=== PATIENT | female | born 1970 | race Two or more races ===

== ENCOUNTER 2016-11-12 09:35 | Emergency (ER) | payer MEDICAID ==
[~2016-11-12] VITALS: Ht 167.6 cm; Wt 76.0 kg
[2016-11-12] MEDS ORDERED: NAPROXEN 500MG TABLET PO ONE (10:30)
[2016-11-12] MEDS ORDERED: CEFAZOLIN 1000MG PREMIX 50 ML IV ONE (10:45)
[2016-11-12] MEDS ORDERED: MORPHINE SULFATE 4 MG/ML CPJ (NOT FOR IM USE) IV ONE ×2 (10:45→12:30)
[2016-11-12] MEDS ORDERED: VANCOMYCIN 1 G PREMIX 200 ML IV SCH (10:45)
[2016-11-12] MEDS ORDERED: SODIUM CHLORIDE 0.9% 1,000 ML IV ONE (10:45)
[2016-11-12 11:11] LABS: BASOPHILS % 1.1 % (0.0-2.0); EOSINOPHILS % 0.1 % (0.0-5.0); HEMATOCRIT. 36.5 % (36.0-48.0); HEMOGLOBIN. 11.9 g/dL (12.0-16.0); MEAN CORPUSCULAR HEMOGLOBIN 25.7 pg (28.0-32.0); MEAN CORPUSCULAR VOLUME 78.5 fL (81.0-99.0); MEAN PLATELET VOLUME 8.1 fl (7.4-10.4); MONOCYTES % 11.5 % (2.0-8.0); NEUTROPHILS % 61.3 % (40.0-76.0); PLATELET 268 x1000/uL (130-400); RED BLOOD CELL COUNT 4.65 mill/uL (4.2-5.4); RED CELL DISTRIBUTION WIDTH 16.9 % (11.6-14.6)
[2016-11-12 11:14] LABS: CHLORIDE 102 mEq/L (98-107)
[2016-11-12 11:21] LABS: CARBON DIOXIDE 27 mEq/L (21-32)
[2016-11-12] MEDS ORDERED: KETOROLAC 15MG/ML VIAL IV ONE (12:30)
[2016-11-12] MEDS ORDERED: ONDANSETRON HCL 4MG/2ML VIAL IV ONE (12:30)
[2016-11-12] MEDS ORDERED: MORPHINE SULFATE 4 MG/ML CPJ (NOT FOR IM USE) IV NR (23:30)
[2016-11-13 00:27] VITALS: BP 120/75
== END 2016-11-13 00:50 | disposition short-term general hospital (02) ==
LOC: ER 11:00
DX: M65.88 Other synovitis and tenosynovitis, other site (principal); M06.9 Rheumatoid arthritis, unspecified
CPT/HCPCS: 36415; 73130; 80053; 85025; 85651; 87040; 96365; 96366; 96368; 96375; 96376; 99285; J0690; J1885; J2270; J2405; J3370; Z7610; J7030